=== PATIENT | female | born 1990 | race African-American/Black ===

== ENCOUNTER 2019-09-29 09:10 | Inpatient (IN) ==
[2019-09-29 09:49] LABS: URINE SOURCE VOIDED
[2019-09-29 09:59] LABS: BILIRUBIN URINE NEGATIVE (NEGATIVE); BLOOD URINE SMALL (NEGATIVE); COLOR YELLOW; GLUCOSE URINE NEGATIVE (NEGATIVE); KETONE URINE NEGATIVE (NEGATIVE); LEUKOCYTES URINE NEGATIVE (NEGATIVE); NITRITE URINE NEGATIVE (NEGATIVE); PH URINE 6.5; PROTEIN URINE 70 mg/dL (NEGATIVE); TURBIDITY URINE CLEAR (CLEAR); UROBILINOGEN URINE NORMAL (NORMAL)
[2019-09-29 10:48] LABS: UR AMPHETAMINES QUAL NONE DETECTED (NONE DETECT); UR BARBITUATES QUAL NONE DETECTED (NONE DETECT); UR BENZODIAZEPIN QUAL NONE DETECTED (NONE DETECT); UR CANNABINOIDS QUAL NONE DETECTED (NONE DETECT); UR COCAINE QUAL NONE DETECTED (NONE DETECT); UR METHADONE QUAL NONE DETECTED (NONE DETECT); UR OPIATES QUAL NONE DETECTED (NONE DETECT); UR OXYCODONE QUAL NONE DETECTED (NONE DETECT); UR PCP QUAL NONE DETECTED (NONE DETECT)
[2019-09-29 11:10] LABS: BASO# 0.02 X1000 (0.0-0.2); BASO% 0.3 % (0.0-0.8); EOS% 1.5 % (0.0-10.0); HEMATOCRIT 35.4 % (37.0-47.0); HEMOGLOBIN 11.3 g/dL (12.0-16.0); IMM GRAN# 0.02 X1000 (0.0-0.04); IMM GRAN% 0.3 % (0.0-0.5); LYMPH# 1.57 X1000 (1.2-3.4); LYMPH% 22.8 % (20.5-51.1); MCH 25.6 PG (27-31); MCHC 31.9 g/dL (33-37); MCV 80.1 FL (81-99); MONO# 0.58 X1000 (0.11-0.59); MONO% 8.4 % (1.7-9.3); NEUT# 4.59 X1000 (1.4-6.5); NEUT% 66.7 % (42.2-75.2); PLT 163 X1000 (130-400); RBC 4.42 XMIL (4.2-5.4); RDW 15.2 % (11.5-14.5); WBC 6.88 X1000 (4.8-10.8)
[2019-09-29 11:39] LABS: ANISOCYTOSIS 2+; EOS 2 % (1-10); LARGE PLATELETS 2+; LYMPHS 24 % (21-51); MICROCYTOSIS 2+; MONO 8 % (1-9); SEGS 66 % (42-75)
[2019-09-29] MEDS ORDERED: KEFZOL 1 GM/D5W 1 GM/50 ML IVPB IV PRN (11:44)
[2019-09-29] MEDS ORDERED: PEPCID PO ONE (11:44)
[2019-09-29] MEDS ORDERED: REGLAN PO ONE (11:44)
[2019-09-29 11:50] LABS: AGAP 12; ALB/GLOB RATIO 1.1; ALBUMIN 2.9 g/dL (3.5-5.0); ALKALINE PHOSPHATASE 107 U/L (32-104); BUN 3 mg/dL (8-22); CALCIUM 8.5 mg/dL (8.8-10.2); CHLORIDE 104 mmol/L (98-107); COSMO 271; CREATININE 0.5 mg/dL (0.5-0.9); ESTIMATED GFR > 60; GLUCOSE 75 mg/dL (70-104); GOT 17 U/L (10-30); GPT 8 U/L (10-36); POTASSIUM 3.9 mmol/L (3.5-5.1); SODIUM 138 mmol/L (136-145); TCO2 22 mmol/L (25-35); TOTAL BILIRUBIN 0.22 mg/dL (0.20-1.00); TOTAL PROTEIN 5.6 g/dL (6.3-8.3)
--- NOTE | 2019-09-29 11:52 | HISTORY AND PHYSICAL ---
ALLERGIES: She has no known allergies. HISTORY OF PRESENT ILLNESS: This lady is a 28-year-old 4, para 3, at 38 and 4 weeks who presented to Labor and Delivery complaining of contractions. Her course has been unremarkable and she does have a history of hypertension and asthma. Note her blood pressures have been normal until about 28 to 30 weeks MEDICATIONS: Include vitamins. SOCIAL HISTORY: She did not smoke or drink. 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 Both surgeries were uneventful. She is scheduled for a repeat section this week. She also had a spontaneous AB in 2006. FAMILY HISTORY: Remarkable for diabetes in her father and hypertension in her grandmother and father. PHYSICAL EXAMINATION: VITAL SIGNS: Her vital signs are stable except for her blood pressure is noted to be elevated at 164/90 and 154/92, 170/83. She had +1 protein in her urine. CARDIOVASCULAR/LUNG: Exam is negative. ABDOMEN: Soft, nontender. PELVIC: Exam done by the staff was noted to be posterior and closed. Estimated weight is approximately 7-1/2 pounds. The patient was noted to have contractions approximately every 5 minutes which she describes as painful. ASSESSMENT: Term gestation with superimposed preeclampsia with chronic hypertension presenting with contractions. She had a previous section x2. The patient is admitted for repeat section and tubal as desired. Tubal discussed, permanence of procedure reviewed and patient wishes to proceed. All questions answered. [facility]
[2019-09-29] MEDS ORDERED: BOOSTRIX VACCINE IM ONE (12:00)
[2019-09-29] MEDS ORDERED: PITOCIN IM PRN (12:00)
[2019-09-29] MEDS ORDERED: PITOCIN 20 UNITS/NS 20 UNITS/1,000 ML IV.SOLN IV ONE (12:00)
[2019-09-29] MEDS ORDERED: DULCOLAX PR PRN (12:00)
[2019-09-29] MEDS ORDERED: AMBIEN PO PRN (12:00)
[2019-09-29] MEDS ORDERED: HYDROXYZINE IM PRN (12:00)
[2019-09-29] MEDS ORDERED: KEFZOL 2 GM/D5W 2 GM/50 ML IVPB IV ONE (12:00)
[2019-09-29] MEDS ORDERED: M-M-R II VACCINE SUBQ ONE (12:00)
[2019-09-29] MEDS ORDERED: DEMEROL PO PRN (12:00)
[2019-09-29] MEDS ORDERED: ATARAX PO PRN (12:00)
[2019-09-29] MEDS ORDERED: MORPHINE IV PRN (12:06)
[2019-09-29] MEDS ORDERED: BICITRA PO ONE (12:13)
[2019-09-29] MEDS: LR 1,000 ML IV SCH ×2 (12:38→13:17)
[2019-09-29] MEDS: MYLICON PO SCH ×3 (13:18→20:05)
[2019-09-29] MEDS ORDERED: FENTANYL ONE (13:32)
[2019-09-29] MEDS ORDERED: ROBINUL ONE (13:33)
[2019-09-29] MEDS ORDERED: NEO-SYNEPHRINE ONE (13:33)
[2019-09-29] MEDS ORDERED: ZOFRAN ONE ×2 (13:33→13:35)
[2019-09-29] MEDS ORDERED: SODIUM CHLORIDE 0.9% 10 ML ONE (13:33)
[2019-09-29] MEDS ORDERED: TORADOL ONE (13:33)
[2019-09-29] MEDS ORDERED: PITOCIN ONE (13:33)
[2019-09-29] MEDS ORDERED: DURAMORPH ONE (13:35)
[2019-09-29] MEDS ORDERED: DECADRON ONE (13:35)
[2019-09-29] MEDS ORDERED: BENADRYL ONE (14:48)
[2019-09-29] MEDS ORDERED: ZOFRAN ODT PO PRN (15:15)
[2019-09-29] MEDS ORDERED: ZOFRAN IV PRN ×2 (15:15)
[2019-09-29] MEDS ORDERED: BENADRYL IV PRN (15:15)
[2019-09-29] MEDS ORDERED: NARCAN INJ PRN (15:15)
[2019-09-29] MEDS ORDERED: NUBAIN IV ONE (17:12)
[2019-09-29] MEDS: TORADOL IV SCH (20:05)
[2019-09-29] MEDS: PERICOLACE PO SCH (20:05)
--- NOTE | 2019-09-29 20:25 | OPERATIVE NOTE ---
PROCEDURE DATE: 09/29/2019 PREOPERATIVE DIAGNOSIS: 1. Intrauterine (IUP) at 38 and 3/7 weeks with increasing blood pressure. 2. History of section and desires tubal ligation. POSTOPERATIVE DIAGNOSIS: 1. Intrauterine (IUP) at 38 and 3/7 weeks with increasing blood pressure. 2. History of section and desires tubal ligation. 3. Operative delivery of a male infant, 7 pounds 15 ounces, with Apgars of 6 and 9 at 1415 on 09/29/2019. PROCEDURE PERFORMED: Repeat low-transverse section and bilateral tubal ligation. SURGEON: Dr. Neeraj Melendez. LOCOMOTIVE ENGINEER DIESEL: Dr. Fuller. ANESTHESIA: Spinal, Dr. Brothers. FINDINGS: Normal appearing uterus, tubes, and ovaries. COMPLICATIONS: None. ESTIMATED BLOOD LOSS: 600 mL. DRAINS: Humphries to straight drain. COUNTS: All counts were correct x3. INDICATIONS: Patient is a 28-year-old black female, G3, P2-0-0-3, at 38+ weeks, with increasing blood pressures and in need of being delivered. The patient has had a previous and we will proceed with a repeat . The patient has also expressed a desire for permanent sterilization. The patient was counseled about the risks of surgery, including bleeding, infection, bowel or bladder injury. The patient was also counseled about the permanency of tubal ligation, failure rate of 2 to 12/999, as well as the availability of reversible alternatives, such as IUD, control pills, patches, etc. DESCRIPTION OF PROCEDURE: The patient was taken to Labor and Delivery OR. She had the spinal anesthesia placed and was placed in dorsal lithotomy position with a roll under right hip. She was then prepped and draped in sterile fashion with placement of Humphries catheter. Adequate anesthesia was noted by using Allis clamps on skin, and then a Pfannenstiel skin incision was made on the lower abdomen using a scalpel. This was taken down sharply to the fascia layers. Small sean was made in the rectus fascia. Fascial incision was then extended bilaterally by curved Latham scissors and pickups. Then the fascial incision was extended superiorly and inferiorly with blunt and sharp dissection. Entry into the peritoneal cavity was accomplished bluntly, and the peritoneal incision was extended superiorly and inferiorly with care taken to avoid the bladder. Bladder reflection was very difficult to obtain due to significant scarring from previous C- section, but did try to create a reflection. A transverse incision was made on the lower uterine segment. This was then extended bilaterally by the surgeon's fingers after entry into the amniotic cavity. head was then elevated toward the hysterotomy site and delivered atraumatically, and bulb suctioned the nose and mouth. Then the rest of the body was delivered atraumatically with gentle fundal pressure. The umbilical cord was clamped twice and cut, and the handed to nursery nurse in attendance for delivery. Cord blood sample was obtained at this time. Placenta was then manually extracted. The uterus was then exteriorized. Wet lap was placed around the uterus. Dry lap was then used to curette the uterine cavity of clots and debris. Uterine incision was then closed using 0 chromic in a running locking fashion x1. Good hemostasis was noted. Attention was then turned to the fallopian tubes and the right fallopian tube was grasped with a [place] Michael clamp. A hole was made in the mesosalpinx using electrocautery, and then 0 plain suture was then used to ligate a portion of the fallopian tube. This was then excised using Metzenbaum scissors. The open ends of the tube were then touched with electrocautery and good hemostasis was noted. Attention was then turned to the left fallopian tube which was then grasped with a [place] Michael clamp. Electrocautery was used to make a hole in the mesosalpinx and then through this hole, 0 plain suture was passed and a portion of the left fallopian tube was ligated, and then this was excised using Metzenbaum scissors and this was handed off to be placed in a specimen container. Electrocautery was used to obtain hemostasis. The posterior cul-de-sac was then irrigated copiously. The uterus was replaced back into the abdominal cavity. Pericolic gutters were cleansed using moist lap sponges. Uterine incision and bladder reflection were inspected. Good hemostasis was noted. The peritoneal incision was then closed using 2-0 chromic in a running fashion x1. The fascial incision was then closed using 0 PDS in a running fashion x1. Subcutaneous tissue was then irrigated and electrocautery was used to obtain hemostasis. The skin was then reapproximated using erick. Patient tolerated the procedure well and was taken to the recovery room in stable condition. All counts were correct x3. cc: Neeraj Melendez III, MD
[2019-09-29] MEDS ORDERED: NUBAIN IV PRN (20:27)
[2019-09-29 23:26] LABS: PROTEIN CREAT RATIO 0.9; UR CREAT RANDOM 96.6 mg/dL (11-20); UR PROT RANDOM 88.3 mg/dL
[2019-09-30] MEDS: TORADOL IV SCH ×2 (02:02→08:15)
[2019-09-30] MEDS: PITOCIN 10 UNITS/NS 1,000 ML IV SCH (02:49)
[2019-09-30] MEDS ORDERED: LR 500 ML IV ONE (05:08)
[2019-09-30] MEDS: LR 1,000 ML IV SCH (05:09)
--- NOTE | 2019-09-30 05:13 | OB/GYN PROGRESS NOTE ---
- Subjective comfortable, has no pain, asking for water, also note urine concentrated, will have nurse bolus 500 cc of fluids OB Physical Exam Vital Signs - 8 hr 09/29/19 21:15 09/29/19 22:15 09/29/19 23:38 Temperature Pulse Rate 71 70 74 Respiratory Rate 18 20 16 Blood Pressure 134/67 147/70 134/68 O2 Sat by Pulse Oximetry 98 98 99 09/30/19 03:24 Temperature 99.1 F Pulse Rate 101 H Respiratory Rate 18 Blood Pressure 148/74 O2 Sat by Pulse Oximetry 97 - CONSTITUTIONAL General Appearance: appears well, alert, no apparent distress - EYES Eyes: PERRL/EOMI - HEAD, EARS, NOSE, MOUTH & THROAT HENMT: normocephalic/atraumatic - RESPIRATORY Respiratory: no respiratory distress - CARDIOVASCULAR Cardiovascular: regular rate, rhythm - CHEST (BREASTS) Chest/Breast: deferred - GASTROINTESTINAL (ABDOMEN) Abdominal Exam: other (abdomen benign, dressing/bandage intact) - GENITOURINARY Female Genitalia/Pelvic Exam: other (bleeding normal) - SKIN Integumentary: normal color - NEUROLOGIC Neurologic: grossly normal - PSYCHIATRIC Psych/Mental Status: normal mood/affect, oriented x 3 Active Medications Generic Name Dose Route Start Last Admin Trade Name Freq PRN Reason Stop Dose Admin Bisacodyl 10 mg 09/29/19 12:00 Dulcolax OH PRN PRN gas unrelieved by Mylicon Diphenhydramine HCl 12.5 mg 09/29/19 15:15 Benadryl IV 09/30/19 15:14 Q6H PRN PRN ITCHING IF ZOFRAN INEFFECTIVE Hydroxyzine HCl 50 mg 09/29/19 12:00 Atarax PO Q3-4H PRN PRN Nausea Hydroxyzine HCl 50 mg 09/29/19 12:00 Hydroxyzine IM Q3-4H PRN PRN Nausea Cefazolin Sodium/Dextrose 1 gm in 50 mls @ 100 mls/hr 09/29/19 11:44 Kefzol 1 Gm/D5w IV ONCE PRN PRN section Lactated Ringer's 1,000 mls @ 125 mls/hr 09/29/19 11:45 09/30/19 05:09 Lr IV Not Given .Q8H SOURAV Lactated Ringer's 1,000 mls @ 125 mls/hr 09/30/19 12:00 Lr IV .Q8H SOURAV Oxytocin/Sodium Chloride 1,000 mls @ 125 mls/hr 09/30/19 02:30 09/30/19 02:49 Pitocin 10 Units/Ns IV 09/30/19 18:29 125 mls/hr .Q8H SOURAV Administration Lactated Ringer's 500 mls @ 999 mls/hr 09/30/19 05:08 Lr IV 09/30/19 05:38 .Q31M ONE Ibuprofen 800 mg 09/29/19 12:00 Motrin PO Q8H PRN PRN Pain Ketorolac Tromethamine 30 mg 09/29/19 20:30 09/30/19 02:02 Toradol IV 09/30/19 08:31 30 mg Q6H SOURAV Administration Meperidine HCl 50 mg 09/29/19 12:00 Demerol PO Q4H PRN PRN Pain (1-6 on Pain Scale) Morphine Sulfate 4 mg 09/29/19 12:06 Morphine IV Q4H PRN PRN Pain Nalbuphine HCl 2.5 mg 09/29/19 20:27 09/29/19 22:42 Nubain IV 2.5 mg Q3H PRN PRN Administration Itching Naloxone HCl 0.4 mg 09/29/19 15:15 Narcan INJ 09/30/19 15:14 DIRECTED PRN PRN Ondansetron HCl 4 mg 09/29/19 15:15 Zofran Odt PO 09/30/19 15:14 DIRECTED PRN PRN Ondansetron HCl 4 mg 09/29/19 15:15 Zofran IV 09/30/19 15:14 DIRECTED PRN PRN Ondansetron HCl 4 mg 09/29/19 15:15 Zofran IV 09/30/19 15:14 Q4-6H PRN PRN Itching Oxycodone/Acetaminophen 1 each 09/29/19 12:00 Percocet-10 PO Q3-4H PRN PRN Pain (7-10 on Pain Scale) Oxycodone/Acetaminophen 1 each 09/29/19 12:00 Percocet-5 PO Q3-4H PRN PRN Pain (1-6 on Pain Scale) Oxytocin 20 unit 09/29/19 12:00 Pitocin IM PRN PRN Severe bleeding Senna/Docusate Sodium 1 each 09/29/19 21:00 09/29/19 20:05 Pericolace PO 1 each QHS SOURAV Administration Simethicone 80 mg 09/29/19 13:00 09/29/19 20:05 Mylicon PO 80 mg PC + HS SOURAV Administration Simethicone 80 mg 09/29/19 12:00 Mylicon PO PRN PRN GAS Zolpidem Tartrate 10 mg 09/29/19 12:00 Ambien PO HS PRN PRN Sleep Laboratory Results - last 24 hr 09/29/19 09/29/19 09/29/19 07:08 07:08 07:20 WBC RBC Hgb Hct MCV MCH MCHC RDW Std Deviation Plt Count MPV Immature Gran % (Auto) Neut % (Auto) Lymph % (Auto) [place] % (Auto) Eos % (Auto) Baso % (Auto) Immature Gran # (Auto) Neut # (Auto) Lymph # (Auto) [place] # (Auto) Eos # (Auto) Baso # (Auto) Segmented Neutrophils Lymphocytes Monocytes Eosinophils Large Platelets Anisocytosis Microcytosis Sodium Potassium Chloride Carbon Dioxide Anion Gap BUN Creatinine Estimated GFR/1.73 m2 BUN/Creatinine Ratio Glucose Calculated Osmolality Uric Acid Calcium Total Bilirubin AST ALT Alkaline Phosphatase Total Protein Albumin Globulin Albumin/Globulin Ratio Urine Source VOIDED Urine Color YELLOW Urine Turbidity CLEAR Urine pH 6.5 Ur Specific [place] 1.010 Urine Protein 70 A Ur Glucose (Stick) NEGATIVE Ur Ketones (Stick) NEGATIVE Urine Blood SMALL A Urine Nitrite NEGATIVE Urine Bilirubin NEGATIVE Urobilinogen Dipstick NORMAL Urine Leukocytes NEGATIVE Ur Random Creatinine 96.6 H U Random Total Protein 88.3 Protein/Creatinin Ratio 0.9 Urine Opiates Screen NONE DETECTED Ur Oxycodone Screen NONE DETECTED Ur Methadone, Qual NONE DETECTED Ur Barbiturates Screen NONE DETECTED Ur Phencyclidine Scrn NONE DETECTED Ur Amphetamines Screen NONE DETECTED U Benzodiazepines Scrn NONE DETECTED Urine Cocaine Screen NONE DETECTED U Cannabinoids Screen NONE DETECTED RPR Blood Type Antibody Screen 09/29/19 09/29/19 09/29/19 10:50 10:50 10:50 WBC 6.88 RBC 4.42 Hgb 11.3 L Hct 35.4 L MCV 80.1 L MCH 25.6 L MCHC 31.9 L RDW Std Deviation 15.2 H Plt Count 163 MPV Not Reportable Immature Gran % (Auto) 0.3 Neut % (Auto) 66.7 Lymph % (Auto) 22.8 [place] % (Auto) 8.4 Eos % (Auto) 1.5 Baso % (Auto) 0.3 Immature Gran # (Auto) 0.02 Neut # (Auto) 4.59 Lymph # (Auto) 1.57 [place] # (Auto) 0.58 Eos # (Auto) 0.10 Baso # (Auto) 0.02 Segmented Neutrophils 66 Lymphocytes 24 Monocytes 8 Eosinophils 2 Large Platelets 2+ Anisocytosis 2+ Microcytosis 2+ Sodium 138 Potassium 3.9 Chloride 104 Carbon Dioxide 22 L Anion Gap 12 BUN 3 L Creatinine 0.5 Estimated GFR/1.73 m2 > 60 BUN/Creatinine Ratio 6 Glucose 75 Calculated Osmolality 271 Uric Acid 5.5 Calcium 8.5 L Total Bilirubin 0.22 AST 17 ALT 8 L Alkaline Phosphatase 107 H Total Protein 5.6 L Albumin 2.9 L Globulin 2.7 Albumin/Globulin Ratio 1.1 Urine Source Urine Color Urine Turbidity Urine pH Ur Specific [place] Urine Protein Ur Glucose (Stick) Ur Ketones (Stick) Urine Blood Urine Nitrite Urine Bilirubin Urobilinogen Dipstick Urine Leukocytes Ur Random Creatinine U Random Total Protein Protein/Creatinin Ratio Urine Opiates Screen Ur Oxycodone Screen Ur Methadone, Qual Ur Barbiturates Screen Ur Phencyclidine Scrn Ur Amphetamines Screen U Benzodiazepines Scrn Urine Cocaine Screen U Cannabinoids Screen RPR Blood Type Antibody Screen 09/29/19 09/29/19 10:50 10:50 WBC RBC Hgb Hct MCV MCH MCHC RDW Std Deviation Plt Count MPV Immature Gran % (Auto) Neut % (Auto) Lymph % (Auto) [place] % (Auto) Eos % (Auto) Baso % (Auto) Immature Gran # (Auto) Neut # (Auto) Lymph # (Auto) [place] # (Auto) Eos # (Auto) Baso # (Auto) Segmented Neutrophils Lymphocytes Monocytes Eosinophils Large Platelets Anisocytosis Microcytosis Sodium Potassium Chloride Carbon Dioxide Anion Gap BUN Creatinine Estimated GFR/1.73 m2 BUN/Creatinine Ratio Glucose Calculated Osmolality Uric Acid Calcium Total Bilirubin AST ALT Alkaline Phosphatase Total Protein Albumin Globulin Albumin/Globulin Ratio Urine Source Urine Color Urine Turbidity Urine pH Ur Specific [place] Urine Protein Ur Glucose (Stick) Ur Ketones (Stick) Urine Blood Urine Nitrite Urine Bilirubin Urobilinogen Dipstick Urine Leukocytes Ur Random Creatinine U Random Total Protein Protein/Creatinin Ratio Urine Opiates Screen Ur Oxycodone Screen Ur Methadone, Qual Ur Barbiturates Screen Ur Phencyclidine Scrn Ur Amphetamines Screen U Benzodiazepines Scrn Urine Cocaine Screen U Cannabinoids Screen RPR NON-REACTIVE Blood Type A POSITIVE Antibody Screen NEGATIVE OB Assessment & Plan (1) Routine follow-up Status: Acute Plan: continue to follow, check hct when ready
[2019-09-30] MEDS ORDERED: LR 500 ML ONE (05:15)
[2019-09-30 05:18] LABS: BASO# 0.01 X1000 (0.0-0.2); BASO% 0.1 % (0.0-0.8); HEMATOCRIT 30.8 % (37.0-47.0); HEMOGLOBIN 9.7 g/dL (12.0-16.0); IMM GRAN# 0.03 X1000 (0.0-0.04); IMM GRAN% 0.2 % (0.0-0.5); LYMPH# 1.07 X1000 (1.2-3.4); LYMPH% 8.6 % (20.5-51.1); MCH 25.3 PG (27-31); MCHC 31.5 g/dL (33-37); MCV 80.4 FL (81-99); MONO# 1.14 X1000 (0.11-0.59); MONO% 9.1 % (1.7-9.3); NEUT# 10.24 X1000 (1.4-6.5); PLT 158 X1000 (130-400); RBC 3.83 XMIL (4.2-5.4); RDW 14.9 % (11.5-14.5); WBC 12.49 X1000 (4.8-10.8)
[2019-09-30] MEDS: PERCOCET-5 PO PRN (07:04)
[2019-09-30] MEDS: MYLICON PO SCH ×6 (07:43→19:59)
[2019-09-30] MEDS ORDERED: LR 1,000 ML IV SCH (12:00)
[2019-09-30] MEDS: MOTRIN PO PRN (14:53)
[2019-09-30] MEDS: PERCOCET-10 PO PRN (17:48)
[2019-09-30] MEDS ORDERED: MAALOX PLUS LIQUID PO PRN (19:20)
[2019-09-30] MEDS: PERICOLACE PO SCH ×2 (19:52→19:59)
[2019-10-01] MEDS: PITOCIN 10 UNITS/NS 1,000 ML IV SCH (00:03)
[2019-10-01] MEDS: PERCOCET-10 PO PRN ×4 (01:03→22:51)
[2019-10-01] MEDS: MOTRIN PO PRN ×3 (01:03→22:51)
[2019-10-01] MEDS: MYLICON PO PRN ×2 (01:07→22:51)
--- NOTE | 2019-10-01 07:31 | OB/GYN PROGRESS NOTE ---
- Subjective 28 yo POD#2 s/p Repeat c/s with BTL at 38w3d with CHTN with HOSEA without severe features Patient seen and examined. Pain controlled. She notes minimal lochia. She is ambulating and voiding without difficulty. She is passing flatus. She states she has not eaten much since surgery, denies nausea/vomiting. She denies any headache, vision change, chest pain, SOB, RUQ pain. She is bottlefeeding.She desires circumcision for son. Discussed that this is an elective procedure and R/B/A. She desires to proceed. Consent signed. OB Physical Exam Vital Signs - 8 hr 10/01/19 03:46 Pulse Rate 87 Respiratory Rate 18 Blood Pressure 142/64 O2 Sat by Pulse Oximetry 98 - CONSTITUTIONAL General Appearance: appears well, alert, no apparent distress - EYES Eyes: PERRL/EOMI - HEAD, EARS, NOSE, MOUTH & THROAT HENMT: normocephalic/atraumatic - RESPIRATORY Respiratory: lungs clear, normal breath sounds, no respiratory distress - CARDIOVASCULAR Cardiovascular: regular rate, rhythm - GASTROINTESTINAL (ABDOMEN) Abdominal Exam: normal bowel sounds, soft, other (ATTP, fundus firm/below umbilicus. Pfannensteil skin incision with erick, C/D/I) - MUSCULOSKELETAL Extremity: normal range of motion DTR: knee (R): 1+, knee (L): 1+ - PSYCHIATRIC Psych/Mental Status: normal mood/affect Active Medications Generic Name Dose Route Start Last Admin Trade Name Freq PRN Reason Stop Dose Admin Al Hydrox/Mg Hydrox/Simethicone 30 ml 09/30/19 19:20 09/30/19 19:51 Maalox Plus Liquid PO 30 ml Q4H PRN PRN Administration INDIGESTION Bisacodyl 10 mg 09/29/19 12:00 Dulcolax PA PRN PRN gas unrelieved by Mylicon Hydroxyzine HCl 50 mg 09/29/19 12:00 09/30/19 08:55 Atarax PO 50 mg Q3-4H PRN PRN Administration Nausea Hydroxyzine HCl 50 mg 09/29/19 12:00 Hydroxyzine IM Q3-4H PRN PRN Nausea Ibuprofen 800 mg 09/29/19 12:00 10/01/19 01:03 Motrin PO 800 mg Q8H PRN PRN Administration Pain Meperidine HCl 50 mg 09/29/19 12:00 Demerol PO Q4H PRN PRN Pain (1-6 on Pain Scale) Oxycodone/Acetaminophen 1 each 09/29/19 12:00 10/01/19 01:03 Percocet-10 PO 1 each Q3-4H PRN PRN Administration Pain (7-10 on Pain Scale) Oxycodone/Acetaminophen 1 each 09/29/19 12:00 09/30/19 07:04 Percocet-5 PO 1 each Q3-4H PRN PRN Administration Pain (1-6 on Pain Scale) Oxytocin 20 unit 09/29/19 12:00 Pitocin IM PRN PRN Severe bleeding Senna/Docusate Sodium 1 each 09/29/19 21:00 09/30/19 19:59 Pericolace PO Not Given QHS SOURAV Simethicone 80 mg 09/29/19 13:00 09/30/19 19:59 Mylicon PO Not Given PC + HS SOURAV Simethicone 80 mg 09/29/19 12:00 10/01/19 01:07 Mylicon PO 80 mg PRN PRN Administration GAS Zolpidem Tartrate 10 mg 09/29/19 12:00 Ambien PO HS PRN PRN Sleep OB Assessment & Plan (1) S/P Status: Acute Plan: 28 yo POD#2 s/p Rpt C/S with BTL with CHTN with HOSEA without severe features 1. HD stable, afebrile 2. BP stable, no signs/symptoms of PreE 3. Routine PP care 4. Encourage ambulation 5. Desires infant circumcision. Discussed R/B/A and that this is an elective procedure. She desires to proceed.
[2019-10-01] MEDS: MYLICON PO SCH ×5 (07:47→20:08)
[2019-10-01] MEDS ORDERED: PROCARDIA PO ONE (08:34)
[2019-10-01] MEDS: ADALAT CC PO SCH (09:30)
[2019-10-01 13:45] LABS: BASO# 0.01 X1000 (0.0-0.2); BASO% 0.1 % (0.0-0.8); EOS# 0.08 X1000 (0.0-0.7); HEMATOCRIT 27.7 % (37.0-47.0); HEMOGLOBIN 8.8 g/dL (12.0-16.0); IMM GRAN# 0.04 X1000 (0.0-0.04); IMM GRAN% 0.5 % (0.0-0.5); LYMPH# 1.13 X1000 (1.2-3.4); LYMPH% 14.6 % (20.5-51.1); MCH 25.7 PG (27-31); MCHC 31.8 g/dL (33-37); MONO% 7.7 % (1.7-9.3); MPV 12.1 FL (7.4-10.4); NEUT% 76.1 % (42.2-75.2); PLT 165 X1000 (130-400); RBC 3.42 XMIL (4.2-5.4); RDW 15.2 % (11.5-14.5); WBC 7.76 X1000 (4.8-10.8)
[2019-10-01 14:02] LABS: AGAP 11; ALB/GLOB RATIO 1.1; ALBUMIN 2.7 g/dL (3.5-5.0); ALKALINE PHOSPHATASE 73 U/L (32-104); BUN 4 mg/dL (8-22); CALCIUM 8.2 mg/dL (8.8-10.2); CHLORIDE 104 mmol/L (98-107); COSMO 273; CREATININE 0.5 mg/dL (0.5-0.9); ESTIMATED GFR > 60; GLUCOSE 71 mg/dL (70-104); GOT 18 U/L (10-30); GPT 7 U/L (10-36); POTASSIUM 3.9 mmol/L (3.5-5.1); SODIUM 139 mmol/L (136-145); TCO2 24 mmol/L (25-35); TOTAL BILIRUBIN 0.35 mg/dL (0.20-1.00); TOTAL PROTEIN 5.1 g/dL (6.3-8.3); URIC ACID 6.6 mg/dL (2.4-5.7)
[2019-10-01] MEDS: PERICOLACE PO SCH (20:08)
[2019-10-02] MEDS: MYLICON PO PRN (03:54)
[2019-10-02] MEDS: PERCOCET-5 PO PRN ×2 (03:54→08:31)
[2019-10-02 07:26] VITALS: BP 133/71
--- NOTE | 2019-10-02 07:34 | OB/GYN PROGRESS NOTE ---
- Subjective 28 yo POD#3 s/p Repeat c/s with BTL at 38w3d with CHTN with HOSEA without severe features Patient seen and examined. Pain controlled. She is ambulating and voiding without difficulty. She is passing flatus. She is tolerating regular diet, denies nausea/vomiting. She denies any headache, vision change, chest pain, SOB, RUQ pain. She is bottle feeding. OB Physical Exam Vital Signs - 8 hr 10/02/19 03:48 10/02/19 04:01 10/02/19 07:23 Temperature 98.8 F 98.9 F 98.8 F Pulse Rate 89 96 H 91 H Respiratory Rate 18 18 18 Blood Pressure 151/72 155/79 133/71 O2 Sat by Pulse Oximetry 98 100 - CONSTITUTIONAL General Appearance: appears well, alert, no apparent distress - RESPIRATORY Respiratory: lungs clear, normal breath sounds - CARDIOVASCULAR Cardiovascular: regular rate, rhythm - GASTROINTESTINAL (ABDOMEN) Abdominal Exam: normal bowel sounds, non tender, soft (FF below umbilicus) - MUSCULOSKELETAL Extremity: no calf tenderness - SKIN Integumentary: normal color, normal turgor, warm/dry (Incision: c/d/i, erick insitu) - PSYCHIATRIC Psych/Mental Status: normal mood/affect, oriented x 3 Active Medications Generic Name Dose Route Start Last Admin Trade Name Freq PRN Reason Stop Dose Admin Al Hydrox/Mg Hydrox/Simethicone 30 ml 09/30/19 19:20 09/30/19 19:51 Maalox Plus Liquid PO 30 ml Q4H PRN PRN Administration INDIGESTION Bisacodyl 10 mg 09/29/19 12:00 Dulcolax SD PRN PRN gas unrelieved by Mylicon Hydroxyzine HCl 50 mg 09/29/19 12:00 09/30/19 08:55 Atarax PO 50 mg Q3-4H PRN PRN Administration Nausea Hydroxyzine HCl 50 mg 09/29/19 12:00 Hydroxyzine IM Q3-4H PRN PRN Nausea Ibuprofen 800 mg 09/29/19 12:00 10/01/19 22:51 Motrin PO 800 mg Q8H PRN PRN Administration Pain Meperidine HCl 50 mg 09/29/19 12:00 Demerol PO Q4H PRN PRN Pain (1-6 on Pain Scale) Nifedipine 30 mg 10/01/19 09:00 10/01/19 09:30 Adalat Cc PO 30 mg DAILY SOURAV Administration Oxycodone/Acetaminophen 1 each 09/29/19 12:00 10/01/19 22:51 Percocet-10 PO 1 each Q3-4H PRN PRN Administration Pain (7-10 on Pain Scale) Oxycodone/Acetaminophen 1 each 09/29/19 12:00 10/02/19 03:54 Percocet-5 PO 1 each Q3-4H PRN PRN Administration Pain (1-6 on Pain Scale) Oxytocin 20 unit 09/29/19 12:00 Pitocin IM PRN PRN Severe bleeding Senna/Docusate Sodium 1 each 09/29/19 21:00 10/01/19 20:08 Pericolace PO 1 each QHS SOURAV Administration Simethicone 80 mg 09/29/19 13:00 10/01/19 20:08 Mylicon PO 80 mg PC + HS SOURAV Administration Simethicone 80 mg 09/29/19 12:00 10/02/19 03:54 Mylicon PO 80 mg PRN PRN Administration GAS Zolpidem Tartrate 10 mg 09/29/19 12:00 Ambien PO HS PRN PRN Sleep Laboratory Results - last 24 hr 10/01/19 10/01/19 13:20 13:20 WBC 7.76 RBC 3.42 L Hgb 8.8 L Hct 27.7 L MCV 81.0 MCH 25.7 L MCHC 31.8 L RDW Std Deviation 15.2 H Plt Count 165 MPV 12.1 H Immature Gran % (Auto) 0.5 Neut % (Auto) 76.1 H Lymph % (Auto) 14.6 L [place] % (Auto) 7.7 Eos % (Auto) 1.0 Baso % (Auto) 0.1 Immature Gran # (Auto) 0.04 Neut # (Auto) 5.90 Lymph # (Auto) 1.13 L [place] # (Auto) 0.60 H Eos # (Auto) 0.08 Baso # (Auto) 0.01 Sodium 139 Potassium 3.9 Chloride 104 Carbon Dioxide 24 L Anion Gap 11 BUN 4 L Creatinine 0.5 Estimated GFR/1.73 m2 > 60 BUN/Creatinine Ratio 8 Glucose 71 Calculated Osmolality 273 Uric Acid 6.6 H Calcium 8.2 L Total Bilirubin 0.35 AST 18 ALT 7 L Alkaline Phosphatase 73 Total Protein 5.1 L Albumin 2.7 L Globulin 2.4 Albumin/Globulin Ratio 1.1 OB Assessment & Plan (1) S/P Status: Acute Plan: 28 yo POD#3 s/p Rpt C/S with BTL with CHTN with HOSEA without severe features 1. HD stable, afebrile 2. BP stable, no signs/symptoms of PreE. Will continue Procardia 30 daily 3. Routine PP care 4. Encourage ambulation 5. Plan for d/c home today
[2019-10-02] MEDS ORDERED: FLU VACCINE IM ONE (08:18)
[2019-10-02] MEDS: ADALAT CC PO SCH (08:25)
[2019-10-02] MEDS: MYLICON PO SCH (08:26)
[2019-10-02] MEDS: MOTRIN PO PRN (08:30)
--- NOTE | 2019-10-03 18:57 | DISCHARGE SUMMARY ---
ADMISSION DATE: 09/29/2019 DISCHARGE DATE: 10/02/2019 ADMITTING PHYSICIAN: Dr. Mercy Fuller. CONDITION ON DISCHARGE: Stable. FINAL DIAGNOSIS: 1. A 28-year-old G 4, P 3-0-1-4 postop day #3 status post repeat section with bilateral tubal ligation at 38 weeks and 4 days. 2. Chronic hypertension with superimposed preeclampsia without severe features. 3. Female sterilization. PROCEDURE: Repeat low-transverse delivery with bilateral tubal ligation on 09/29/2019. HOSPITAL COURSE: The patient presented to Labor and Delivery at 38 weeks and 4 days with complaints of contractions, regular contractions were noted on admission. The course was complicated by history of chronic hypertension and asthma. Blood pressures were noted to be normal until approximately 28 to 30 weeks which were progressively increased. The patient underwent a repeat section with bilateral tubal ligation on 09/29/2019. She had a routine course, on day #2 pressures continued to increase and patient was started on antihypertensive medication Procardia XL 30 mg daily, pressures improve with antihypertensive medication. On day #3 the patient was tolerating regular diet. Denied any signs or symptoms of superimposed preeclampsia, denied headaches, visual changes, right upper quadrant pain, shortness of breath. The patient was ambulating and voiding without difficulty and noted minimal lochia. The patient also admitted to bottle-feeding. Incision healing well with erick in situ, all questions were answered prior to discharge DISCHARGE MEDICATION: Nifedipine 30 mg p.o. daily, Colace 100 mg p.o. daily, ferrous sulfate 325 mg p.o. daily, ibuprofen 800 mg p.o. q.8 hours, Percocet 10 one tab p.o. q.4 hours p.r.n. DISCHARGE INSTRUCTIONS: Patient instructed to notify doctor with temperature greater than 100.4 degrees Fahrenheit, vaginal bleeding greater than 1 pad an hour, foul-smelling vaginal discharge or severe abdominal pain. Patient instructed to place nothing in vagina for approximately 6 weeks no tampons, douching or sex. FOLLOWUP APPOINTMENT: Patient instructed to follow with Dr. Melendez at [facility] in approximately 1 week for staple removal. Patient given clinical information.
== END 2019-10-02 10:30 | disposition home or self-care (01) | DRG 785 ==
LOC: EDSTATUS 09:10 → OPLD 09:10 → LD 09:13
PROVIDERS: ADMIT Obstetrics & Gynecology; ATTEND Obstetrics & Gynecology